=== PATIENT | male | born 1985 | race Caucasian/White ===

== ENCOUNTER 2021-04-01 16:44 | Emergency (ER) | payer BC, OTHER ==
[~2021-04-01] VITALS: Ht 175.3 cm; Wt 86.4 kg
[2021-04-01 16:48] VITALS: BP 137/85
[2021-04-01] MEDS ORDERED: LIDOcaine 1% W/epiNEPHrine 1:200,000 10ml vial IJ ONE (16:50)
[2021-04-01] MEDS ORDERED: TETanus/Pertussis (Acell)/Diphther VAC/PF (Tdap-Adult) 0.5ml syringe IMVAC ONE (16:50)
[2021-04-01] MEDS ORDERED: HYDR-3965 PO (18:31)
[2021-04-01] MEDS ORDERED: CEPH-585 PO (18:31)
== END 2021-04-01 18:51 | disposition home or self-care (01) ==
LOC: ER 16:45
DX: S61.221A Laceration with foreign body of left index finger without damage to nail, initial encounter (principal); S61.213A Laceration without foreign body of left middle finger without damage to nail, initial encounter; I10 Essential (primary) hypertension
CPT/HCPCS: 12002; 73120; 90715; 99283; 99284